=== PATIENT | male | born 1980 | race Caucasian/White ===

== ENCOUNTER 2017-08-19 10:39 | Emergency (ER) | payer OTHER, MEDICAID ==
[2017-08-19] MEDS: KETOROLAC 60 MG INJ IM (11:05)
== END 2017-08-19 11:28 | disposition home or self-care (01) ==
LOC: FTE 10:39
DX: M54.5 Low back pain (principal); F17.210 Nicotine dependence, cigarettes, uncomplicated
CPT/HCPCS: 96372; 99284-25

== ENCOUNTER 2018-05-15 07:17 | Emergency (ER) | payer OTHER ==
[2018-05-15] MEDS: IPRATROPIUM (NEB) 0.5 MG/2.5 ML AMP HHN (08:19)
[2018-05-15] MEDS: ALBUTEROL 0.083% (NEB) 2.5 MG/3 ML AMP HHN (08:19)
[2018-05-15] MEDS: CEFTRIAXONE 1 GM INJ IM (09:15)
[2018-05-15] MEDS: LIDOCAINE 1% (MPF) 5 ML VIAL INJ (09:15)
[2018-05-15] MEDS: DEXAMETHASONE 10 MG/ML 1 ML INJ IM (09:15)
== END 2018-05-15 09:49 | disposition home or self-care (01) ==
LOC: FTE 07:17
DX: J18.9 Pneumonia, unspecified organism (principal)
CPT/HCPCS: 71045; 94664; 96372; 99284-25